=== PATIENT | male | born 1965 | race Caucasian/White ===

== ENCOUNTER 2017-01-21 09:01 | Emergency (ER) | payer OTHER ==
[2017-01-21] MEDS ORDERED: TETRACAINE 0.5% OPHTH 15 ML BOTTLE ONE (09:26)
[2017-01-21] MEDS ORDERED: FLUORESCEIN STRIP 1 MG/STRIP STRIP ONE (09:26)
[2017-01-21] MEDS ORDERED: TOBRAMYCIN 0.3% OPHTH 25 DROP/5 ML BTL ONE (09:43)
[2017-01-21] MEDS ORDERED: EYE WASH BSS SOLN 1 APPLIC APP ONE (09:44)
--- NOTE | 2017-01-21 09:52 | ER PHYSICIAN DOCUMENTATION ---
Physician Documentation [facility] Name:Contreras Louise Age:51 yrs Sex:Male :1965 Arrival Date:01/21/2017 Time:09:01 Bed2 Private MD:Wally Ng ED, Scott Disposition: 01/21/17 09:43 Discharged to Home/Self Care. Impression: Corneal Abrasion. - Condition is Good. - Discharge Instructions: CORNEAL ABRASION. - Medical Reconciliation form form. - Follow up: Emergency Department; When: As needed; Reason: Worsening of condition, Recheck today's complaints. - Problem is new. - Symptoms have improved. HPI: 01/21 09:38 This 51 yrs old Male presents to ER via Private Vehicle with complaints of sc Eye Injury - LEFT. 09:38 The patient is experiencing pain, redness, tearing, The patient sustained an abrasion, sc to the left eye. Onset: The symptom(s)/episode began/occurred just prior to arrival. Duration: the symptoms are continuous. Aggravated by blinking. Associated signs and symptoms: Pertinent positives: None. Pertinent negatives: None. Patient has had LASIK surgery. Historical: - Allergies: No known drug Allergies; - Home Meds: 1. BP medication - PMHx: Hypertension; - Tetanus: < 10 years. - Ebola Screening: : Patient denies exposure to infectious person. Patient denies travel to an Ebola-affected area in the 21 days before illness onset. . - Social history: Smoking status: Patient states was never smoker of tobacco. Patient uses alcohol occasionally. Patient/guardian denies using marijuana. ROS: 09:41 Constitutional: Negative for fever, chills, and weight loss. sc ENT: Negative for injury, pain, and discharge. Neck: Negative for injury, pain, and swelling. Skin: Negative for injury, rash, and discoloration. 09:41 Neuro: Negative for headache, weakness, numbness, tingling, and seizure. sc 09:41 Eyes: Positive for injury or acute deformity. Exam: 09:41 Visual Acuity: I have reviewed the nursing documentation. sc Constitutional: This is a well developed, well nourished patient who is awake, alert, and in no acute distress. Head/Face: Normocephalic, atraumatic. Skin: Warm, dry with normal turgor. Normal color with no rashes, no lesions, and no evidence of cellulitis. MS/ Extremity: Pulses equal, no cyanosis. Neurovascular intact. Full, normal range of motion, negative Homans's, calves equal bilaterally. 09:41 Neuro: Awake and alert, GCS 15, oriented to person, place, time, and situation. Cranial nerves II-XII grossly intact. Motor strength 5/5 in all extremities. Sensory grossly intact. Cerebellar exam normal. Normal gait. 09:41 Eyes: Periorbital structures: appear normal, Pupils: equal, round, and reactive to light and accomodation, Extraocular movements: intact throughout, Conjunctiva: injected, Corneas: abrasion, that is moderate sized, a fluorescein strip employed to appreciate the findings. Vital Signs: 09:12 BP 140 / 86; Pulse 72; Resp 16; Temp 97.8; Pulse Ox 95% on R/A; Pain 6/10; st Visual Acuity: 09:12 Left Eye Visual acuity 20/40, ; Right Eye Visual acuity 20/20, ; Both Eyes Visual st acuity 20/20; Without Lenses; 09:43 Left Eye Visual acuity 20/30, ; Right Eye Visual acuity 20/20, ; Both Eyes Visual st acuity 20/20; Without Lenses; [facility]: 09:25 Patient medically screened. de 09:42 Differential diagnosis: Corneal abrasion of left eye. Data reviewed: vital signs, de nurses notes, and as a result, I will discharge patient. Counseling: I had a detailed discussion with the patient and/or guardian regarding: the historical points, exam findings, and any diagnostic results supporting the discharge/admit diagnosis, the need for outpatient follow up, for a recheck, to return to the emergency department if symptoms worsen or persist or if there are any questions or concerns that arise at home. Medication response: The patient's symptoms have improved. Dispensed Medications: 09:34 Drug: Tetracaine Drops 0.5 % 1 drops; {Note: given to DR. Gonsalez to administer..} Route: st Ophthalmic; Site: left eye; 09:34 Drug: Fluorescein Strip 1 strip; {Note: given to Dr. Gonsalez to administer. .} Route: st Ophthalmic; Site: left eye; 09:50 Drug: Balanced Salt Soln Drops 1 application; {Note: given by dr. gonsalez.} Route: st Ophthalmic; Site: left eye; 09:50 Drug: Tobradex Drops (0.3 %-0.1 %) 2 drops; {Note: given by dr gonsalez.} Route: st Ophthalmic; Site: left eye; Signatures: Trena Ayala, RN RN st [place], MD LINDA Cowan de
--- NOTE | 2017-01-21 09:52 | ER NURSING DOCUMENTATION ---
Nurse's Notes [facility] Name:Contreras Louise Age:51 yrs Sex:Male :1965 Arrival Date:01/21/2017 Time:09:01 Bed2 Private MD:Wally Ng Diagnosis:Corneal Abrasion Presentation: 01/21 09:05 Presenting complaint: Patient states: pt got hit in the left eye with a PVC pipe. pt st now has tearing and pain in the left eye. PVC pipe was bent and stuck when it was released it snapped back hitting his eye. Transition of care: Home. Mechanism of Injury: hit in eye by PVC pipe. The patient reports a positive loss of vision. The patient's loss of vision began suddenly blurred vision and watering from the eye. Notified ED Physician of Dr. Gonsalez notified. 09:05 Acuity: JASON 3 st 09:05 Method Of Arrival: Private Vehicle st Triage Assessment: 09:10 General: Appears uncomfortable, Behavior is cooperative. Pain: Complains of pain in st left eye Pain currently is 6 out of 10 on a pain scale. At worst was 9 out of 10 on a pain scale. EENT: Eyes are tearing on iris of left eye redness noted in the left eye. . pt is able to move both eye to fallow a finger. . Cardiovascular: No deficits noted. Respiratory: No deficits noted. GI: No deficits noted. Injury Description: scratch to the bridge of the nose. Historical: - Allergies: No known drug Allergies; - Home Meds: 1. BP medication - PMHx: Hypertension; - Tetanus: < 10 years. - Ebola Screening: : Patient denies exposure to infectious person. Patient denies travel to an Ebola-affected area in the 21 days before illness onset. . - Social history: Smoking status: Patient states was never smoker of tobacco. Patient uses alcohol occasionally. Patient/guardian denies using marijuana. Screenin:13 Infectious Disease Risk None. Abuse screen: Denies threats or abuse. Denies injuries st from another. pt feels safe at home. Nutritional screening: No deficits noted. Vital Signs: 09:12 BP 140 / 86; Pulse 72; Resp 16; Temp 97.8; Pulse Ox 95% on R/A; Pain 6/10; st Visual Acuity: 09:12 Left Eye Visual acuity 20/40, ; Right Eye Visual acuity 20/20, ; Both Eyes Visual st acuity 20/20; Without Lenses; 09:43 Left Eye Visual acuity 20/30, ; Right Eye Visual acuity 20/20, ; Both Eyes Visual st acuity 20/20; Without Lenses; ED Course: 09:02 Patient arrived in ED. ds 09:05 Trena Ayala, RN is Primary Nurse. st 09:[address] 09:13 Valuables Remains with patient Patient has correct armband on for positive st identification. Bed in low position. Lights dimmed. Diet:. 09:25 Chapo Gonsalez MD is Attending Physician. sc 09:29 Wally Ng MD is Private Physician. ds Administered Medications: 09:34 Drug: Tetracaine Drops 0.5 % 1 drops; {Note: given to DR. Gonsalez to administer..} Route: st Ophthalmic; Site: left eye; 09:34 Drug: Fluorescein Strip 1 strip; {Note: given to Dr. Gonsalez to administer. .} Route: st Ophthalmic; Site: left eye; 09:50 Drug: Balanced Salt Soln Drops 1 application; {Note: given by dr. gonsalez.} Route: st Ophthalmic; Site: left eye; 09:50 Drug: Tobradex Drops (0.3 %-0.1 %) 2 drops; {Note: given by dr gonsalez.} Route: st Ophthalmic; Site: left eye; Outcome: 09:43 Discharge ordered by . dc 09:51 Discharged to home ambulatory. st 09:51 Condition: improved 09:51 Discharge instructions given to patient, Instructed on discharge instructions, follow up and referral plans. medication usage. 09:51 [address] ED[address] st 03/ 09:13 Discharge F/U Call: Unable to reach: no answer st Signatures: Trena Ayala, RN RN st [place], Suly, Reg Reg ds Chapo Gonsalez MD MD dc
== END 2017-01-21 09:52 | disposition home or self-care (01) ==
LOC: ER 09:01
DX: S05.02XA Injury of conjunctiva and corneal abrasion without foreign body, left eye, initial encounter (principal); W22.8XXA Striking against or struck by other objects, initial encounter
CPT/HCPCS: 99283